=== PATIENT | female | born 1990 | race Caucasian/White ===

== ENCOUNTER → 2020-11-12 | Outpatient (CLI) | payer BC ==
[~2020-11-12] MED LIST: FLEXERIL 10 MG10 MG PO; IBUPROFEN800 MG PO; LODINE CAP 300300 MG PO; NORCO 5-325 TA1 EACH PO; NORFLEX 100 MG100 MG PO
== END ==
LOC: CT 11:26
DX: R93.421 Abnormal radiologic findings on diagnostic imaging of right kidney (principal); N28.9 Disorder of kidney and ureter, unspecified
CPT/HCPCS: 74170; Q9967